=== PATIENT | female | born 1995 | race Caucasian/White ===

== ENCOUNTER 2016-07-16 01:47 | Emergency (ER) | payer OTHER ==
[~2016-07-16] VITALS: Ht 162.6 cm; Wt 80.0 kg
[~2016-07-16 01:47] MED LIST: PREN1TAB17 PO
[2016-07-16 02:21] VITALS: Ht 162.6 cm; Wt 80.0 kg
[2016-07-16] MEDS ORDERED: KETOROLAC 30 MG INJ IM STA (03:11)
--- NOTE | 2016-07-16 03:16 | ERD ---
ER Documentation Chief Complaint Date/Time DATE: 07/16/16 TIME: 03:12 Chief Complaint right ear ache x 3 days HPI 21-year-old female presents the emergency department for a right ear ache 3 days. Patient states that the pain has gradually worsened and is currently a 10 out of 10 throbbing constant pain in the right ear as well as a 3 out of 10 in the left ear. Patient states she has noticed some drainage from the right ear and notes some decreased hearing. Patient denies any history of swimming. Patient denies any diabetes or other medical problems. Patient attempted to treat her pain with Tylenol today with little relief. Patient denies any fever , nausea, vomiting, diarrhea, cough, body aches, chills, dysuria, hematuria, abdominal pain. ROS All systems reviewed and are negative except as per history of present illness. Medications Home Meds Active Scripts Ibuprofen* (Motrin*) 600 Mg Tab, 600 MG PO Q6H Y for PAIN AND OR ELEVATED TEMP, #30 TAB Prov:GABI MONSALVE PA-C 07/16/16 Ciprofloxacin Hcl/Dexameth (Ciprodex Otic Suspension) 7.5 Ml Drops.susp, 4 DROP BOTH EARS BID for 7 Days, EA Prov:GABI MONSALVE PA-C 07/16/16 Amoxicillin/Potassium Clav (Amox-Clav 500-125 mg Tablet) 500-125 mg Tab, 1 TAB PO Q8 for 7 Days, #21 TAB Prov:GABI MONSALVE PA-C 07/16/16 Reported Medications Vit-Iron Fumarate-FA ( Tablet) 1 Each Tablet, 1 EACH PO DAILY 03/10/13 Allergies Allergies: Coded Allergies: No Known Allergy (Verified , 04/08/12) PMhx/Soc Anesthesia Reaction: No Hx Neurological Disorder: No Hx Respiratory Disorders: No Hx Cardiac Disorders: No Hx Psychiatric Problems: No Hx Miscellaneous Medical Probl: No Hx Alcohol Use: No (UNK) Hx Substance Use: No (UNK) Hx Tobacco Use: No (UNK) Smoking Status: Never smoker Physical Exam Vitals Vital Signs Date Time Temp Pulse Resp B/P Pulse Ox O2 Delivery O2 Flow Rate FiO2 07/16/16 02:21 98.3 70 20 123/77 100 Physical Exam General: Well developed, well nourished, interactive, no distress Head: Normocephalic, atraumatic EENT: Copious amounts of purulent drainage as well as inflammation throughout right ear canal. Unable to visualize right sided tympanic membrane. Tenderness to manipulation of pinna along right and left ears. Mild inflammation and erythema along left ear canal. Tympanic membrane nonbulging and intact on left side. Pupils equally reactive, EOM intact, posterior pharynx without exudates, uvula midline Neck: Supple, no lymphadenopathy Respiratory: Lungs clear bilaterally, no distress Cardiovascular: RRR, no murmurs, rubs, or gallops Abdominal: Soft, non-tender, non-distended, no peritoneal signs : Deferred MSK: No edema, no unilateral swelling, moving all four extremities Nurologic: Alert, interactive, playful, moving all extremities without deficits , appropriate for age Skin: No rash Results 24 hrs Current Medications Medications (Trade) Dose Ordered Sig/Brian Route PRN Reason Start Time Stop Time Status Last Admin Dose Admin Ketorolac Tromethamine (Toradol) 30 mg ONCE STAT IM 07/16/16 03:11 07/16/16 03:13 DC 07/16/16 03:18 Procedures/MDM 21-year-old otherwise healthy female presents to the emergency department for an earache 3 days. History and physical exam most consistent with acute otitis externa. Patient received IM Toradol for pain in the emergency department and reports moderate improvement of pain The patient does not exhibit any clinical signs or symptoms concerning for serious bacterial infection or systemic illness. Based on history and clinical exam findings the patient does not appear to have evidence of pneumonia, strep pharyngitis, urinary tract infection, bacteremia, sepsis, or meningitis. For these reasons I do not believe it is necessary to obtain laboratory testing or diagnostic imaging. I believe it would be appropriate for symptom control, and close outpatient primary care follow-up. Patient received prescription for Ciprodex and Augmentin to treat infection Patient to continue Motrin and Tylenol for pain as needed Based on patient's history of present illness and physical examination the decision was made to discharge. The patient was re-evaluated after ED treatment and stabilizing measures, and symptoms have improved. There is no evidence of life threatening injuries or illnesses at this time. On re-examination, patient resting in no distress, stable vital signs, reports feeling better and safe for discharge with outpatient follow up with PMD in 1-2 days. Patient given return precautions. GABI MONSALVE PA-C Jul 16, 2016 03:16
[2016-07-16] MEDS ORDERED: AMOX1TAB9 PO (03:18)
[2016-07-16] MEDS ORDERED: CIPR7.5D4 BOTH EARS (03:18)
[2016-07-16] MEDS ORDERED: IBUP-1542 PO (03:18)
[2016-07-16 03:54] VITALS: BP 117/77; PULSE 66; RESP 12; TEMP 98.6
== END 2016-07-16 04:00 | disposition home or self-care (01) ==
LOC: FTE 01:47
DX: H60.501 Unspecified acute noninfective otitis externa, right ear (principal)
CPT/HCPCS: 96372; J1885; Z7502